=== PATIENT | male | born 1995 | race Asian ===

== ENCOUNTER 2016-02-25 21:54 | Emergency (ER) | payer OTHER ==
[2016-02-25 22:03] VITALS: TEMP 98.1
--- NOTE | 2016-02-25 22:20 | EDPHY ---
H & P Stated Complaint: L foot injury HPI/ROS: HPI CHIEF COMPLAINT: Left foot pain status post playing soccer HISTORY OF PRESENT ILLNESS: This patient very pleasant 20-year-old male denies any significant medical or surgical history is not take any daily medications, presents to the emergency room with left foot pain status post playing indoor soccer. Patient tells me that about an hour and half ago develop severe 4/10 left foot pain the pain is located on the dorsum of the foot over the 1st metatarsal. Patient is unsure exactly when injured his foot. He does not remember any acute trauma to his foot does not remember anything falling or a cleat stepping on his foot or him injury and he does remember that played soccer and then shortly after playing soccer he developed this pain. He is unable to walk on his foot. There is no obvious signs of trauma on exam. No others injury. Past Medical History: No significant medical history Past Surgical History: No significant surgical history Social History: is a student at [employer] denies use of drugs alcohol tobacco products Family History: Noncontributory ROS REVIEW OF SYSTEMS: A comprehensive 10 point review of systems is otherwise negative aside from elements mentioned in the history of present illness. Exam Constitutional triage nursing summary reviewed, vital signs reviewed, awake/ alert. Eyes normal conjunctivae and sclera, EOMI, PERRLA. HENT normal inspection, atraumatic, moist mucus membranes, no epistaxis, neck supple/ no meningismus, no raccoon eyes. Respiratory clear to auscultation bilaterally, normal breath sounds, no respiratory distress, no wheezing. Cardiovascular rate normal, regular rhythm, no murmur, no edema, distal pulses normal. Gastrointestinal soft, non-tender, no rebound, no guarding, normal bowel sounds, no distension, no pulsatile mass. Genitourinary no CVA tenderness. Musculoskeletal left foot: No signs of trauma, neurovascular intact good cap refill, warm extremity, good pulse, tenderness palpation of the 1st metatarsal no crepitus, Achilles intact, no plantar tenderness, no evidence plantar fasciitis, no Achilles injury, foot is neurovascular intact warm, no signs of trauma or swelling. no midline vertebral tenderness, full range of motion, no calf swelling, no tenderness of extremities, no meningismus, good pulses, neurovascularly intact. Skin pink, warm, & dry, no rash, skin atraumatic. Neurologic awake, alert and oriented x 3, AAOx3, moves all 4 extremities equally, motor intact, sensory intact, CN II-XII intact, normal cerebellar, normal vision, normal speech. Psychiatric normal mood/affect. Heme/Lymph/Immune no lymphadenopathy. Differential Diagnosis: This includes but is not limited to in a particular order, left foot contusion, left foot sprain, metatarsal fracture, Lisfranc fracture, dancer's fracture, hairline fracture, stress fracture. Medical Decision Making: this patient be given 800 mg ibuprofen for pain control as he has not taken anything for pain, will perform an x-ray of his left foot to rule out fracture. Most likely patient will be placed in Chuck wrap with crutches for supportive care. Ice his foot keep it elevated and return emergency room if there is any worsening symptoms questions or concerns. Re-evaluation: ED x-ray left foot three view: Negative for acute abnormality specifically no fracture visualized. This image interpreted by myself. Source: Patient - Personal History Current Tetanus/Diphtheria Vaccine: No - Medical/Surgical History Hx Asthma: No Hx Chronic Respiratory Disease: No Hx Diabetes: No Hx Cardiac Disease: No Hx Renal Disease: No Hx Cirrhosis: No Hx Alcoholism: No Hx HIV/AIDS: No Hx Splenectomy or Spleen Trauma: No Other PMH: PMHx: denies. PSHx: appy - Social History Smoking Status: Never smoked Constitutional: Initial Vital Signs Temperature (C) 36.7 C 02/25/16 21:59 Heart Rate 113 H 02/25/16 21:59 Respiratory Rate 16 02/25/16 21:59 Blood Pressure 144/67 H 02/25/16 21:59 O2 Sat (%) 95 02/25/16 21:59 O2 Delivery Mode Room Air Allergies/Adverse Reactions: No Known Allergies Allergy (Unverified 02/25/16 21:59) Home Medications: Medication Instructions Recorded Ibuprofen [Motrin (*)] 800 mg PO Q6-8PRN #30 tab 02/25/16 Medical Decision Making - Data Points Medications Given: Discontinued Medications Ibuprofen (Motrin) 800 mg PO EDNOW ONE Stop: 02/25/16 22:24 Last Admin: 02/25/16 22:35 Dose: 800 mg Departure - Departure Disposition: Home, Routine, Self-Care Clinical Impression: Sprain of foot, left Qualifiers: Qualifier Code: (S93.602A) Unspecified sprain of left foot, initial encounter Condition: Good Instructions: Foot Contusion (ED), Foot Sprain (ED) Additional Instructions: 1. Rest your foot 2. please ice her foot 3. take ibuprofen for pain control 4. use crutches to help ambulate 5.If he continues to have pain 3-5 days now please follow up with Orthopedics. Their number has been provided to you. 6. no soccer for 2 weeks. Referrals: Sandra Aragon DPM [Doctor of Podiatric Medicine] - As per Instructions Prescriptions: Ibuprofen [Motrin (*)] 800 mg PO Q6-8PRN #30 tab
[2016-02-25] MEDS ORDERED: IBUPROFEN 200 MG TAB PO ONE (22:23)
--- NOTE | 2016-02-25 22:57 | DX ---
Left Foot, 3 Views, at 10:23 p.m. Clinical History: 20-year-old male who complains of left foot pain across the arch of the foot after a soccer injury. Comparison Study: None. Findings: Bone mineralization is preserved. There is no acute fracture, dislocation, or periostitis. Impression: Negative.
[2016-02-25 23:08] VITALS: BP 142/65; PULSE 95; RESP 24; O2SAT 94
== END 2016-02-25 23:08 | disposition home or self-care (01) ==
DX: S93.602A Unspecified sprain of left foot, initial encounter (principal); X58.XXXA Exposure to other specified factors, initial encounter; Y99.8 Other external cause status; Y93.66 Activity, soccer